=== PATIENT | female | born 1990 | race Caucasian/White ===

== ENCOUNTER 2016-10-06 18:11 | Outpatient (CLI) | payer OTHER ==
[2016-10-06 18:11] VITALS: BP 138/89
[~2016-10-06 18:11] MED LIST: ABILIFY5 MG PO; ADVAIR 100/501 DISK IH; ADVAIR 250/501 DISK IH; ALBUTEROL; ALBUTEROL SULF8.5 GM IH; CHILDREN VITAM1 EACH PO; CIPRO500 MG PO; CLARITIN10 M3 PO; CLONAZEPAM2 MG PO; FLINTSTONES1 TABLET; FLONASE16 GM; FLONASE16 GM NS; KEFLEX500 MG PO; LIDODERM 5% P1 PATCH TD; MACROBID100 MG PO; METRONIDAZOLE500 MG; NAPROSYN500 MG PO; NATALCARE RX1 TABLET; NITROFURANTOIN; NO MEDS; NOHOMEMEDS; NORCO 5/3251 TABLET PO; PROVENTIL,2.5 MG/3 M IH; PROVENTIL,200 INHALA; PULMICORT FLE180 MCG IH; PULMICORT FLEX90 MCG IH; PULMICORT180 MICROG; PYRIDIUM100 MG PO; TRAMADOL HCL50 MG PO; TYLENOL WITH C1 EACH PO; ULTRAM50 MG PO; VALIUM5 MG PO; VENTOLIN HFA18 GM IH; XANAX0.5 MG PO; ZANTAC150 MG PO; ZOFRAN4 MG; ZOFRAN4 MG PO; [UNRECOGNIZED DRUG - OTHER]
[2016-10-06 19:02] LABS: HEMATOCRIT 34.3 % (36.0-46.0); MCH 32.7 PG (29.0-34.0); MCHC 34.4 G/DL (30.0-36.0); MEAN PLAT.VOLUME 9.5 uM^3 (9.5-12.4); PLATELET COUNT 261 K/uL (156-360); RBC DIS.WIDTH-CV 12.3 % (11.8-14.6); RBC DIS.WIDTH-SD 42.8 % (39-53); RED BLOOD COUNT 3.61 M/uL (3.80-5.20)
[2016-10-06 19:18] LABS: ANION GAP 8 MEQ/L (2-14); CHLORIDE 106 MEQ/L (99-109); SAMPLE HEMOLYSIS CHECK 0; SAMPLE ICTERIC CHECK 0; SAMPLE LIPEMIA CHECK 0; SODIUM 135 MEQ/L (136-147); TOTAL BILIRUBIN 0.3 MG/DL (0.0-1.0)
[2016-10-06 19:24] LABS: ALKALINE PHOSPHATASE 74 IU/L (3-129); GFR ESTIMATE (CALCULATED) > 59 mL/min/; GLUCOSE 88 mg/dL (70-99); UREA NITROGEN (BUN) 8 mg/dL (9-23)
[2016-10-06 19:34] LABS: AMPHETAMINES QUANT VALUE 0 NG/ML; BARBITUATES QUANT VALUE 0 NG/ML; BENZODIAZEPINES QUANT VALUE 0 NG/ML; BENZODIAZEPINES, URINE SCREEN Negative (200 ng/mL); MARIJUANA QUANT VALUE 0 NG/ML; OPIATES QUANTITATIVE VALUE 0 NG/ML; PHENCYCLIDINE QUANT VALUE 0 NG/ML
[2016-10-06 19:49] LABS: EOSINOPHIL (%) 1.3 % (0-5); EOSINOPHIL COUNT 0.1 K/uL (0-0.3); HEMATOLOGY COMMENT 1 SMEAR COMPATIBLE; IMMATURE GRANULOCYTE (%) 0.3 % (0.0-0.7); LYMPHOCYTE COUNT 1.9 K/uL (1.0-2.8); MONOCYTE COUNT 0.6 K/uL (0-0.8); NEUTROPHIL (%) 67.2 % (45-76); NEUTROPHIL COUNT 5.4 K/uL (1.8-6.4); PLAT.SUFFICIENCY NORMAL; USER ID NJV
[2016-10-06 19:50] LABS: Estimated Average Glucose 114 mg/dL (70-123); HEMOGLOBIN A1c (GLYCOHEMOGLOB) 5.6 % HGB (Below 5.7)
[2016-10-06 20:02] LABS: ADD MIUA? YES; BILIRUBIN NEGATIVE; BLOOD NEGATIVE; COLOR YELLOW ((YELLOW)); GLUCOSE (STRIP) 100; KETONES NEGATIVE; LEUKOCYTES TRACE; NITRITE NEGATIVE; PH, URINE 6.5 (5-8); PROTEIN (STRIP) TRACE; SPECIFIC GRAVITY 1.023 (1.000-1.030)
[2016-10-06 20:15] VITALS: BP 133/63
[2016-10-06 20:20] LABS: PROBE CHECK PASS
[2016-10-06 20:35] LABS: BACTERIA RARE /HPF; CALCIUM OXALATE CRYSTALS RARE /HPF; CASTS NONE SEEN /LPF; CRYSTALS PRESENT; EPITHELIAL CELLS 1+ /HPF; MUCUS 2+ /LPF; RED BLOOD CELLS 0-5 /HPF (0-5); UCUL ADDED? NO; WHITE BLOOD CELLS 0-5 /HPF (0-5)
[2016-10-06 22:01] LABS: CANDIDA DNA PROBE NEGATIVE; GARDNERELLA DNA PROBE POSITIVE; INTERNAL CONTROL VALID? YES
[2016-10-07 12:57] LABS: CHLAMYDIA TRACHOMATIS NEGATIVE; NEISSERIA GONORRHOEAE NEGATIVE
[2016-10-08 11:15] LABS: TREPONEMA ANTIBODY NEGATIVE (NEGATIVE)
== END 2016-10-06 21:55 | disposition home or self-care (01) ==
LOC: LDRP-OP 18:11 → 2WEST 18:12 → LDRP-OP 12-23 17:24
PROVIDERS: Advanced Practice Midwife
DX: R10.30 Lower abdominal pain, unspecified (principal); O99.89 Other specified diseases and conditions complicating pregnancy, childbirth and the puerperium; Z3A.33 33 weeks gestation of pregnancy
CPT/HCPCS: 59025; 80053; 81003; 82731; 83036; 85025; 86780; 86850; 86900; 86901; 87086; 87480; 87491; 87510; 87591; 87653; 87660; G0378; J2790

== ENCOUNTER 2016-11-17 14:48 | Inpatient (IN) | payer OTHER ==
[~2016-11-17] VITALS: Ht 172.7 cm; Wt 88.2 kg
[2016-11-17] VITALS (34 sets, daily range): BP systolic 119–168; BP diastolic 59–97
[2016-11-17] MEDS ORDERED: ZANTAC75 M1 PO (15:54)
[2016-11-17] MEDS ORDERED: FLINTSTONES M100 MCG PO (15:55)
[2016-11-17] MEDS ORDERED: PROAIR RESPICL90 MCG IH (15:59)
[2016-11-17 16:10] LABS: EOSINOPHIL (%) 0.9 % (0-5); EOSINOPHIL COUNT 0.1 K/uL (0-0.3); HEMATOCRIT 36.5 % (36.0-46.0); IMMATURE GRANULOCYTE (%) 0.6 % (0.0-0.7); IMMATURE GRANULOCYTE COUNT 0.1 K/uL; INSTRUMENT ABS NEUTROPHIL CT 6.3 K/uL; MCH 32.3 PG (29.0-34.0); MCHC 33.4 G/DL (30.0-36.0); MCV 96.6 FL (83-99); MEAN PLAT.VOLUME 9.6 uM^3 (9.5-12.4); MONOCYTE (%) 5.8 % (3-12); MONOCYTE COUNT 0.5 K/uL (0-0.8); NEUTROPHIL (%) 70.4 % (45-76); NEUTROPHIL COUNT 6.3 K/uL (1.8-6.4); PLATELET COUNT 325 K/uL (156-360); RBC DIS.WIDTH-CV 12.9 % (11.8-14.6); RED BLOOD COUNT 3.78 M/uL (3.80-5.20)
[2016-11-17 16:48] LABS: ANION GAP 9 MEQ/L (2-14); CHLORIDE 105 MEQ/L (99-109); POTASSIUM 4.1 MEQ/L (3.7-5.4); SAMPLE HEMOLYSIS CHECK 0; SAMPLE ICTERIC CHECK 0; SAMPLE LIPEMIA CHECK 0; SODIUM 137 MEQ/L (136-147); TOTAL BILIRUBIN 0.4 MG/DL (0.0-1.0)
[2016-11-17 16:53] LABS: ALKALINE PHOSPHATASE 122 IU/L (3-129); GFR ESTIMATE (CALCULATED) > 59 mL/min/; GLUCOSE 82 mg/dL (70-99); LACTATE DEHYDROGENASE 123 IU/L (20-246); UREA NITROGEN (BUN) 9 mg/dL (9-23)
[2016-11-17 16:56] LABS: AMPHETAMINES QUANT VALUE 0 NG/ML; BARBITUATES QUANT VALUE 0 NG/ML; BENZODIAZEPINES QUANT VALUE 0 NG/ML; BENZODIAZEPINES, URINE SCREEN Negative (200 ng/mL); MARIJUANA QUANT VALUE 0 NG/ML; OPIATES QUANTITATIVE VALUE 0 NG/ML; PHENCYCLIDINE QUANT VALUE 0 NG/ML
[2016-11-17 22:45] LABS: UR CREATININE CONCENTRATION 46.2 MG/DL
[2016-11-18] VITALS (19 sets, daily range): BP systolic 112–158; BP diastolic 54–96
[2016-11-19 05:41] LABS: EOSINOPHIL COUNT 0.2 K/uL (0-0.3); IMMATURE GRANULOCYTE (%) 0.5 % (0.0-0.7); IMMATURE GRANULOCYTE COUNT 0.1 K/uL; INSTRUMENT ABS NEUTROPHIL CT 6.5 K/uL; LYMPHOCYTE COUNT 3.3 K/uL (1.0-2.8); MCH 32.3 PG (29.0-34.0); MCHC 33.4 G/DL (30.0-36.0); MCV 96.7 FL (83-99); MEAN PLAT.VOLUME 9.6 uM^3 (9.5-12.4); MONOCYTE (%) 5.8 % (3-12); MONOCYTE COUNT 0.6 K/uL (0-0.8); NEUTROPHIL (%) 60.6 % (45-76); NEUTROPHIL COUNT 6.5 K/uL (1.8-6.4); PLATELET COUNT 295 K/uL (156-360); RBC DIS.WIDTH-CV 12.9 % (11.8-14.6); RBC DIS.WIDTH-SD 45.8 % (39-53); RED BLOOD COUNT 3.31 M/uL (3.80-5.20); WHITE BLOOD COUNT 10.6 K/uL (4.1-10.2)
[2016-11-19 07:19] VITALS: BP 144/70
[2016-11-19 15:27] VITALS: BP 139/63
[2016-11-19 23:12] VITALS: BP 139/84
[2016-11-20 07:05] VITALS: BP 136/72
[2016-11-20 15:09] VITALS: BP 138/85
== END 2016-11-20 18:19 | disposition home or self-care (01) | DRG 768 ==
LOC: LDRP-OP → 2WEST 14:49 → LDRP-OP 12-23 22:12
PROVIDERS: Advanced Practice Midwife
PROC: 00HU33Z Insertion of Infusion Device into Spinal Canal, Percutaneous Approach (ICD-10-PCS; principal; 2016-11-18)
PROC: 10E0XZZ Delivery of Products of Conception, External Approach (ICD-10-PCS; principal; 2016-11-18)
PROC: 0W3R7ZZ Control Bleeding in Genitourinary Tract, Via Natural or Artificial Opening (ICD-10-PCS; principal; 2016-11-18)
PROC: 3E0R3CZ (ICD-10-PCS; principal; 2016-11-18)
DX: O70.0 First degree perineal laceration during delivery (principal); O99.324 Drug use complicating childbirth; O62.3 Precipitate labor; O16.4 Unspecified maternal hypertension, complicating childbirth; O99.824 Streptococcus B carrier state complicating childbirth; O99.344 Other mental disorders complicating childbirth; F14.90 Cocaine use, unspecified, uncomplicated; Z3A.39 39 weeks gestation of pregnancy; Z37.0 Single live birth; O99.334 Smoking (tobacco) complicating childbirth; F17.200 Nicotine dependence, unspecified, uncomplicated; F11.90 Opioid use, unspecified, uncomplicated
CPT/HCPCS: 80053; 80306 90; 82570; 83615; 84156; 84550; 85025; C1755; G0378; J2540; J3010; J7120

== ENCOUNTER 2017-06-29 11:37 | Emergency (ER) | payer OTHER ==
[~2017-06-29] VITALS: Ht 172.7 cm; Wt 56.0 kg
[~2017-06-29 11:37] MED LIST changes: +FLINTSTONES M100 MCG PO; +PROAIR RESPICL90 MCG IH; +ZANTAC75 M1 PO
[2017-06-29 11:59] LABS: HEMATOCRIT 42.4 % (36.0-46.0); MCH 31.8 PG (29.0-34.0); MCHC 33.5 G/DL (30.0-36.0); MCV 95.1 FL (83-99); MEAN PLAT.VOLUME 10.1 uM^3 (9.5-12.4); PLATELET COUNT 231 K/uL (156-360); RBC DIS.WIDTH-CV 12.8 % (11.8-14.6); RBC DIS.WIDTH-SD 44.7 % (39-53); RED BLOOD COUNT 4.46 M/uL (3.80-5.20); WHITE BLOOD COUNT 13.3 K/uL (4.1-10.2)
[2017-06-29 12:16] LABS: CHLORIDE 104 mEq/L (99-109); POTASSIUM 3.9 mEq/L (3.7-5.4); SODIUM 139 mEq/L (136-147)
[2017-06-29 12:19] LABS: ANION GAP 11 MEQ/L (2-14); GLUCOSE 110 mg/dL (70-99)
[2017-06-29 12:20] LABS: TOTAL BILIRUBIN 0.7 mg/dL (0.0-1.0)
[2017-06-29 12:21] LABS: ALKALINE PHOSPHATASE 52 IU/L (3-129)
[2017-06-29 12:22] LABS: GFR ESTIMATE (CALCULATED) > 59 mL/min/
[2017-06-29 12:23] LABS: UREA NITROGEN (BUN) 10 mg/dL (9-23)
[2017-06-29 12:25] LABS: LIPASE 3 U/L (1.0-51.0)
[2017-06-29 12:31] LABS: QUANTITATIVE HCG < 4.0 MIU/ML
[2017-06-29 13:13] LABS: EOSINOPHIL (%) 0.2 % (0-5); IMMATURE GRANULOCYTE (%) 0.3 % (0.0-0.7); INSTRUMENT ABS NEUTROPHIL CT 10.7 K/uL; MONOCYTE (%) 3.7 % (3-12); MONOCYTE COUNT 0.5 K/uL (0-0.8); NEUTROPHIL (%) 87.3 % (45-76); NEUTROPHIL COUNT 10.7 K/uL (1.8-6.4)
[2017-06-29 13:15] LABS: ADD MIUA? YES; BILIRUBIN NEGATIVE; BLOOD NEGATIVE; COLOR AMBER ((YELLOW)); GLUCOSE (STRIP) NEGATIVE; KETONES NEGATIVE; LEUKOCYTES MODERATE; NITRITE NEGATIVE; PROTEIN (STRIP) 30; SPECIFIC GRAVITY 1.033 (1.000-1.030)
[2017-06-29 13:35] LABS: BACTERIA NONE SEEN /HPF; EPITHELIAL CELLS 1+ /HPF; MUCUS 4+ /LPF; RED BLOOD CELLS 0-5 /HPF (0-5); UCUL ADDED? YES
[2017-06-29] MEDS ORDERED: ULTRAM50 MG PO (16:55)
[2017-06-29] MEDS ORDERED: VIBRAMYCIN100 MG PO (16:55)
[2017-06-29] MEDS ORDERED: FLAGYL500 MG PO (16:55)
[2017-06-29] MEDS ORDERED: NAPROSYN500 MG PO (16:56)
[2017-06-29 17:49] VITALS: BP 122/70
== END 2017-06-29 17:50 | disposition home or self-care (01) ==
LOC: EME 11:37
DX: N73.9 Female pelvic inflammatory disease, unspecified (principal); J45.909 Unspecified asthma, uncomplicated; I10 Essential (primary) hypertension; F17.200 Nicotine dependence, unspecified, uncomplicated; Z59.0 Homelessness
CPT/HCPCS: 74177; 76856; 80053; 81003; 83690; 84702; 85025; 85027; 87086; 87491; 87591; 99281; 99285; J0696; J2405; J3010; J7030

== ENCOUNTER 2017-06-29 18:33 | Emergency (ER) | payer OTHER ==
[~2017-06-29] VITALS: Ht 172.7 cm; Wt 78.2 kg
[~2017-06-29 18:33] MED LIST changes: +FLAGYL500 MG PO; +VIBRAMYCIN100 MG PO
[2017-06-29 21:37] LABS: EOSINOPHIL (%) 0 % (0-5); HEMATOCRIT 39.5 % (36.0-46.0); IMMATURE GRANULOCYTE (%) 0.8 % (0.0-0.7); IMMATURE GRANULOCYTE COUNT 0.1 K/uL; INSTRUMENT ABS NEUTROPHIL CT 13.4 K/uL; LYMPHOCYTE COUNT 0.6 K/uL (1.0-2.8); MCH 32.2 PG (29.0-34.0); MCHC 34.7 G/DL (30.0-36.0); MCV 92.9 FL (83-99); MONOCYTE (%) 1.9 % (3-12); MONOCYTE COUNT 0.3 K/uL (0-0.8); NEUTROPHIL (%) 92.8 % (45-76); NEUTROPHIL COUNT 13.4 K/uL (1.8-6.4); PLATELET COUNT 202 K/uL (156-360); RBC DIS.WIDTH-CV 12.8 % (11.8-14.6); RBC DIS.WIDTH-SD 43.4 % (39-53); RED BLOOD COUNT 4.25 M/uL (3.80-5.20); WHITE BLOOD COUNT 14.4 K/uL (4.1-10.2)
[2017-06-29 21:45] LABS: CHLORIDE 106 mEq/L (99-109); POTASSIUM 2.8 mEq/L (3.7-5.4); SODIUM 136 mEq/L (136-147)
[2017-06-29 21:47] LABS: GLUCOSE 125 mg/dL (70-99)
[2017-06-29 21:49] LABS: ANION GAP 9 MEQ/L (2-14)
[2017-06-29 21:50] LABS: TOTAL BILIRUBIN 0.9 mg/dL (0.0-1.0)
[2017-06-29 21:51] LABS: ALKALINE PHOSPHATASE 49 IU/L (3-129); GFR ESTIMATE (CALCULATED) > 59 mL/min/
[2017-06-29 21:52] LABS: UREA NITROGEN (BUN) 8 mg/dL (9-23)
[2017-06-29 22:14] LABS: SERUM ETHYL ALCOHOL < 10 mg/dL
[2017-06-29 22:48] LABS: PHENCYCLIDINE NEGATIVE (25 ng/mL); THC CANNABINOIDS PRESUMPTIVE POSITIVE (50 ng/mL)
[2017-06-29 22:49] LABS: ADD MEDTOX COMMENT Y; AMPHETAMINE NEGATIVE (500 ng/mL); BARBITURATES NEGATIVE (200 ng/mL); BENZODIAZEPINES NEGATIVE (150 ng/mL); COCAINE NEGATIVE (150 ng/mL); INTERNAL CONTROLS VALID? YES; METHADONE NEGATIVE (200 ng/mL); METHAMPHETAMINE NEGATIVE (500 ng/mL); OPIATES (MORPHINE) PRESUMPTIVE POSITIVE (100 ng/mL); OXYCODONE NEGATIVE (100 ng/mL); PROPOXYPHENE NEGATIVE (300 ng/mL); TRICYCLIC ANTIDEPRESSANTS NEGATIVE (300 ng/mL)
[2017-06-29 23:26] VITALS: BP 120/80
[2017-06-29 23:58] LABS: MARIJUANA QUANT VALUE 0 NG/ML
[2017-06-30 12:24] LABS: CHLAMYDIA TRACHOMATIS NEGATIVE; NEISSERIA GONORRHOEAE POSITIVE
== END 2017-06-29 23:27 | disposition home or self-care (01) ==
LOC: EME 18:33
PROVIDERS: Emergency Medicine; Physician Assistant
DX: R10.9 Unspecified abdominal pain (principal); I10 Essential (primary) hypertension; J45.909 Unspecified asthma, uncomplicated; F17.200 Nicotine dependence, unspecified, uncomplicated; Z88.2 Allergy status to sulfonamides; Z88.5 Allergy status to narcotic agent; Z88.6 Allergy status to analgesic agent
CPT/HCPCS: 80053; 84999; 85025 91; 87210; 87491; 87591; 99281; 99285; G0480; J2405; J3010; J7030

== ENCOUNTER 2018-02-17 23:17 | Emergency (ER) | payer OTHER ==
[~2018-02-17] VITALS: Ht 175.3 cm; Wt 75.9 kg
[2018-02-18] MEDS ORDERED: VENTOLIN HFA18 GM IH ×2 (00:32→20:47)
[2018-02-18 00:39] VITALS: BP 134/89
[2018-02-18] MEDS ORDERED: PREDNISONE20 MG PO (20:47)
== END 2018-02-18 00:40 | disposition home or self-care (01) ==
LOC: EME 23:17
DX: J45.901 Unspecified asthma with (acute) exacerbation (principal); F17.200 Nicotine dependence, unspecified, uncomplicated; Z33.1 Pregnant state, incidental; Z88.2 Allergy status to sulfonamides; Z88.5 Allergy status to narcotic agent; Z88.6 Allergy status to analgesic agent
CPT/HCPCS: 94640; 99281; 99284; J7512

== ENCOUNTER 2018-02-18 19:09 | Emergency (ER) | payer OTHER ==
[~2018-02-18] VITALS: Ht 172.7 cm; Wt 75.0 kg
[2018-02-18] MEDS ORDERED: VENTOLIN HFA18 GM IH (20:47)
[2018-02-18] MEDS ORDERED: PREDNISONE20 MG PO (20:47)
[2018-02-18 22:05] VITALS: BP 138/63
== END 2018-02-18 22:08 | disposition home or self-care (01) ==
LOC: EME 19:09
DX: J45.901 Unspecified asthma with (acute) exacerbation (principal); R00.0 Tachycardia, unspecified; F17.200 Nicotine dependence, unspecified, uncomplicated; Z88.2 Allergy status to sulfonamides
CPT/HCPCS: 71046; 94640; 94644; 99281; 99282; J7512

== ENCOUNTER 2018-03-06 20:15 | Emergency (ER) | payer OTHER ==
[~2018-03-06] VITALS: Ht 180.3 cm; Wt 74.3 kg
[~2018-03-06 20:15] MED LIST changes: +PREDNISONE20 MG PO
[2018-03-06 20:32] LABS: HEMATOCRIT 44.8 % (36.0-46.0); HEMOGLOBIN 15.4 G/DL (11.9-15.5); MCH 32.5 PG (29.0-34.0); MCHC 34.4 G/DL (30.0-36.0); MCV 94.5 FL (83-99); PLATELET COUNT 282 K/uL (156-360); RBC DIS.WIDTH-CV 13.2 % (11.8-14.6); RBC DIS.WIDTH-SD 46.4 % (39-53); RED BLOOD COUNT 4.74 M/uL (3.80-5.20); WHITE BLOOD COUNT 8.4 K/uL (4.1-10.2)
[2018-03-06 20:47] LABS: CHLORIDE 104 mEq/L (99-109); POTASSIUM 3.9 mEq/L (3.7-5.4); SODIUM 140 mEq/L (136-147)
[2018-03-06 20:48] LABS: GLUCOSE 99 mg/dL (70-99)
[2018-03-06 20:52] LABS: CREATININE 0.9 mg/dL (0.6-1.3); GFR ESTIMATE (CALCULATED) > 59 mL/min/
[2018-03-06 20:53] LABS: UREA NITROGEN (BUN) 12 mg/dL (9-23)
[2018-03-06 20:56] LABS: TROP-I INTERPRETATION NEGATIVE; TROPONIN-I 0.01 ng/mL (0.0-0.30)
[2018-03-06 21:00] LABS: QUANTITATIVE HCG < 4.0 MIU/ML
[2018-03-06 22:16] VITALS: BP 141/102
== END 2018-03-06 22:17 | disposition home or self-care (01) ==
LOC: RME 20:15 → EME 20:15 → RME 22:17
PROVIDERS: Emergency Medicine
DX: G43.909 Migraine, unspecified, not intractable, without status migrainosus (principal)
CPT/HCPCS: 71045; 80048; 81003; 84484; 84702; 85027; 87086; 93005; 99281; 99283; J0780; J1200